=== PATIENT | male | born 1990 | race Caucasian/White ===

== ENCOUNTER 2020-12-31 10:41 | Emergency (ER) | payer SELFPAY ==
--- NOTE | 2020-12-31 11:37 | CT ---
CT cervical spine Technique: Multiple axial sections were obtained from above the C1 inferiorly to the upper T2 vertebral body. Reconstructed coronal and sagittal images were obtained. Findings: Vertebral body heights and disc spaces are maintained. No bony central or bony neural foraminal stenosis is seen. No acute fracture or subluxation is seen. Impression: 1. Nothing acute is appreciated on CT study of the cervical spine. Diagnostic code #1
--- NOTE | 2020-12-31 11:50 | EDM.PDOC ---
ED HPI GENERAL MEDICAL PROBLEM - General Chief Complaint: Back Pain or Injury Stated Complaint: SHOULDER PAIN/NUMBNESS Time Seen by Provider: 12/31/20 11:05 Source of Information: Reports: Patient History Limitations: Reports: No Limitations - History of Present Illness INITIAL COMMENTS - FREE TEXT/NARRATIVE: 30-year-old male presents the emergency department today with complaints of bilateral upper extremity numbness and pain while sleeping or laying in bed. Patient states that when he gets up in the morning and starts to move around the pain and numbness subside. He states this has been going on for about a week or so. He denies any previous injury to his back or upper extremities. 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 Denies sleeping with extremities elevated above his head at night. He states he either sleeps on his back or lays on one of the sides. No significant past medical history. Patient states he is a three-quarter pack a day smoker for the past 15 years or so. States he has not taken anything for the discomfort and has not tried any ice or heat to alleviate the discomfort. - Related Data Allergies Allergy/AdvReac Type Severity Reaction Status Date / Time No Known Allergies Allergy Verified 12/31/20 10:56 Home Meds: Home Meds . [No Known Home Meds] 12/31/20 [History] Past Medical History - Past Health History Medical/Surgical History: Denies Medical/Surgical History Social & Family History - Tobacco Use Tobacco Use Status *Q: Current Every Day Tobacco User Years of Tobacco use: 15 Packs/Tins Daily: 1 ED ROS GENERAL - Review of Systems Review Of Systems: Comprehensive ROS is negative, except as noted in HPI. ED EXAM, UPPER BACK/NECK PAIN - Physical Exam Exam: See Below Exam Limited By: No Limitations General Appearance: Alert, WD/WN, No Apparent Distress Eye Exam: Bilateral Eye: PERRL Ears Exam: Normal External Exam, Hearing Grossly Normal Nose Exam: Normal Inspection Throat/Mouth Exam: Normal Inspection, Normal Lips, Normal Voice, No Airway Comp romise Head Exam: Atraumatic, Normocephalic Neck Exam: Non-Tender, Full Range of Motion, Normal Alignment, Normal Inspection. No: Paraspinous Muscle Tender, Tenderness, Tender Lateral, Tender Midline Nexus Criteria: No: Posterior, Midline Cervical Tenderness, Evidence of Intoxication, Altered Level of Consciousness, Focal Neurological Deficit, Painful Distraction Injuries Cardiovascular/Respiratory: Regular Rate, Rhythm, Normal Peripheral Pulses, No Respiratory Distress GI/Abdominal: No Distention (Male) Exam: Deferred Rectal (Males) Exam: Deferred Back Exam: Normal Inspection, Full Range of Motion Extremities: Normal Inspection, Normal Range of Motion, Non-Tender, No Pedal Edema, Normal Capillary Refill, Other (phallen test did elicit numbness in left upper extremity in the hand and wrist, however the right upper extremity was unaffected; pulses remained 2+ in bilateral upper extremities when extremities were elevated above the patient's head). No: Arm Pain Neurologic: No Motor/Sensory Deficits, Alert, Normal Mood/Affect, Oriented x 3 Psychiatric: Normal Affect, Normal Mood Skin Exam: Normal Color, Warm/Dry Lymphatic: No Adenopathy Course - Vital Signs Text/Narrative:: States numbness and tingling and pain to bilateral upper extremities has been going on for about a week. He denies any recent injury or previous injury to his back or extremities. States he wakes with numbness and tingling and pain to bilateral upper extremities. Once he is up and moving for the day he states that the pain and numbness go away. Denies any issues with low back pain or any lower extremity numbness or weakness. I have ordered a CT scan of the thoracic spine. Last Recorded V/S: Last Vital Signs Temp 97.8 F 12/31/20 10:52 Pulse 77 12/31/20 10:52 Resp 16 12/31/20 10:52 BP 119/71 12/31/20 10:52 Pulse Ox 99 12/31/20 10:52 - Re-Assessments/Exams Free Text/Narrative Re-Assessment/Exam: 12/31/20 12:[address] cervical spine: 1. Nothing acute is appreciated on the CT study of the cervical spine. Pt will be discharged to home with recommendations that he follow up with Dr. Harley chan for further evaluation. Departure - Departure Time of Disposition: 11:48 Disposition: Home, Self-Care 01 Condition: Good Clinical Impression: Paresthesia and pain of both upper extremities - Discharge Information Instructions: Paresthesia, [id number] Referrals: PCP,None [Primary Care Provider] - Forms: ED Department Discharge Additional Instructions: You were seen in the emergency department today with complaints of numbness and pain in both of your upper arms and hands while laying in bed and sleeping. CT scan was completed which was unremarkable. However, I am going to recommend that you follow-up with our orthopedic surgeon, Dr. Traore, [facility] [place]. Recommend that you call to schedule an appointment today. The phone number is [phone]. In the meantime, he may take ibuprofen 600 mg prior to bed or Aleve 2 tabs prior to bed. Also recommend ice to the affected area 30 minutes at a time every 3 hours while awake. Should your condition worsen or change, do not hesitate returning to the emergency department. Sepsis Event Note (ED) - Evaluation Sepsis Screening Result: No Definite Risk - Focused Exam Vital Signs: Vital Signs Temp Pulse Resp BP Pulse Ox 12/31/20 10:52 97.8 F 77 16 119/71 99
== END 2020-12-31 12:00 | disposition home or self-care (01) ==
LOC: JD.ED 10:41
DX: M79.622 Pain in left upper arm (principal); M79.621 Pain in right upper arm; R20.2 Paresthesia of skin; F17.210 Nicotine dependence, cigarettes, uncomplicated
CPT/HCPCS: 72125; 72125-26; 99283; 99284-25

== ENCOUNTER 2021-04-22 05:48 | Emergency (ER) | payer SELFPAY ==
[2021-04-22] MEDS ORDERED: Clindamycin HCl 150 MG Cap PO ONE (06:16)
--- NOTE | 2021-04-22 06:17 | EDM.PDOC ---
ED HPI GENERAL MEDICAL PROBLEM - General Chief Complaint: ENT Problem Stated Complaint: TOOTH ACHE SWOLLEN JAW AND LIP Time Seen by Provider: 04/22/21 06:07 Source of Information: Reports: Patient History Limitations: Reports: No Limitations - History of Present Illness INITIAL COMMENTS - FREE TEXT/NARRATIVE: The patient presents with left lower jaw swelling. This started a few days ago. He also has some tenderness and erythema to the corner of his left mouth. He says none of his teeth hurt. He has no fever or chills. He has some swelling in to his neck also. Onset: Gradual Duration: Day(s): Location: Reports: Face Quality: Reports: Sharp Severity: Moderate Improves with: Reports: None Worsens with: Reports: None Associated Symptoms: Reports: No Other Symptoms Left Jaw Pain Score (Numeric/FACES): 10 - Related Data Allergies Allergy/AdvReac Type Severity Reaction Status Date / Time No Known Allergies Allergy Verified 04/22/21 06:00 Home Meds: Home Meds Clindamycin HCl 450 mg PO TID #90 capsule 04/22/21 [Rx] Past Medical History - Past Health History Medical/Surgical History: Denies Medical/Surgical History Social & Family History - Tobacco Use Tobacco Use Status *Q: Current Every Day Tobacco User Years of Tobacco use: 10 Packs/Tins Daily: 1 - Caffeine Use Caffeine Use: Reports: Coffee, Energy Drinks - Recreational Drug Use Recreational Drug Use: No ED ROS ENT - Review of Systems Review Of Systems: See Below Constitutional: Reports: No Symptoms HEENT: Reports: Other (Left jaw swelling) Respiratory: Reports: No Symptoms Cardiovascular: Reports: No Symptoms Endocrine: Reports: No Symptoms GI/Abdominal: Reports: No Symptoms : Reports: No Symptoms Musculoskeletal: Reports: No Symptoms ED EXAM, ENT - Physical Exam Exam: See Below Exam Limited By: No Limitations General Appearance: Alert, No Apparent Distress Ears: Normal External Exam Nose: Normal Inspection Mouth/Throat: Other (No pain upon palpation to his teeth. Erythema and edema to the corner of the left side of his mouth. Edema and pain upon palpation to the left jaw with small papule.) Head: Atraumatic, Normocephalic Neck: Lymphadenopathy (L) Respiratory/Chest: No Respiratory Distress, Lungs Clear Course - Vital Signs Last Recorded V/S: Last Vital Signs Temp 97.9 F 04/22/21 05:57 Pulse 72 04/22/21 05:57 Resp 18 04/22/21 05:57 BP 128/86 04/22/21 05:57 Pulse Ox 97 04/22/21 05:57 - Re-Assessments/Exams Free Text/Narrative Re-Assessment/Exam: 04/22/21 06:14 I have ordered a dose of clindamycin here and a prescription for more. 04/22/21 06:16 Departure - Departure Time of Disposition: 06:20 Disposition: Home, Self-Care 01 Condition: Good Clinical Impression: Cellulitis, face - Discharge Information *PRESCRIPTION DRUG MONITORING PROGRAM REVIEWED*: Not Applicable *COPY OF PRESCRIPTION DRUG MONITORING REPORT IN PATIENT VISHAL: Not Applicable Prescriptions: Clindamycin HCl 450 mg PO TID #90 capsule Referrals: PCP,None [Primary Care Provider] - Rose Marie Russo NP [Nurse Practitioner] - 1 Week Additional Instructions: Drink plenty of fluids. Take the clindamycin 3 pills 3 times per day for 10 days. Take tylneol or motrin as needed for pain or fever. Put warm compresses on your face 3 to 5 times per day for 3 days. Please return if you are worse. Sepsis Event Note (ED) - Evaluation Sepsis Screening Result: No Definite Risk - Focused Exam Vital Signs: Vital Signs Temp Pulse Resp BP Pulse Ox 04/22/21 05:57 97.9 F 72 18 128/86 97
== END 2021-04-22 06:32 | disposition home or self-care (01) ==
LOC: JD.ED 05:48
DX: L03.211 Cellulitis of face (principal); Z72.0 Tobacco use
CPT/HCPCS: 99283; A9270

== ENCOUNTER 2021-04-24 19:08 | Emergency (ER) | payer SELFPAY ==
--- NOTE | 2021-04-24 19:41 | EDM.PDOC ---
ED HPI GENERAL MEDICAL PROBLEM - General Chief Complaint: ENT Problem Stated Complaint: swollen jaw Time Seen by Provider: 04/24/21 19:18 Source of Information: Reports: Patient, Old Records (ED visit 04/22/2021) History Limitations: Reports: No Limitations - History of Present Illness INITIAL COMMENTS - FREE TEXT/NARRATIVE: Mr. Isidro is a very pleasant 30-year-old gentleman who states that he developed tender swelling under his left mandible 6 days ago, , 04/18/2021. He was seen in this ED on 04/22/2021. Review of the medical record from that date indicates that he also had some tenderness and erythema to the left corner of his mouth, and he reported that the swelling was extending to his neck, as well. He had not had a fever or chills. He denied having any dental pain. On examination, the patient had no tenderness to palpation of his teeth. There was erythema and edema to the left corner of his mouth. There is edema and tenderness to the left jaw, with a small papule noted. He was given a dose of clindamycin, and discharged home with a prescription for clindamycin 450 mg po TID #90. The patient states that he has been taking the clindamycin as prescribed, but that his symptoms have only worsened. He reports that he developed a sore throat, today. He states that he went to the walk-in clinic today, where he was found to have a temperature of 100.9 degrees. He was sent here for further evaluation. Here in the ED tonight, the patient is found to be hemodynamically stable, afebrile, saturating 99% on room air. He appears to be relatively comfortable, in no acute distress. The patient denies having prior similar symptoms. He states that he has never previously had a cold sore. Other than the left mandible and neck pain and swelling, and the possible fever earlier tonight, the patient denies having a recent chills, ear pain, nasal or sinus congestion, cough, dyspnea, chest pain, palpitations, nausea, vomiting, constipation, diarrhea, abdominal pain, urinary symptoms, recent weight gain or weight loss, recent bloody bowel movements or black bowel movements, recent joint aches, headaches, or rashes. The patient does not have a PCP. He has not received a COVID vaccination. Lower Jaw Pain Score (Numeric/FACES): 10 - Related Data Allergies Allergy/AdvReac Type Severity Reaction Status Date / Time No Known Allergies Allergy Verified 04/24/21 19:19 Home Meds: Home Meds Clindamycin HCl 450 mg PO TID #90 capsule 04/22/21 [Rx] valACYclovir [Valtrex] 1 tab PO Q12H #14 tablet 04/24/21 [Rx] Past Medical History - Past Health History Medical/Surgical History: Denies Medical/Surgical History Social & Family History - Tobacco Use Tobacco Use Status *Q: Current Every Day Tobacco User Tobacco Use Within Last Twelve Months: Smokeless Tobacco (Chews 1 can/week) Years of Tobacco use: 17 Packs/Tins Daily: 1.5 Tobacco Use Comment: Started smoking 2003 - Caffeine Use Caffeine Use: Reports: Coffee, Energy Drinks - Alcohol Use Alcohol Use History: Yes Alcohol Use Frequency: Rarely - Recreational Drug Use Recreational Drug Use: No - Living Situation & Occupation Living situation: Reports: Single, with Significant Other (Girlfriend) Occupation: Employed ([employer]) ED ROS ENT - Review of Systems Review Of Systems: Comprehensive ROS is negative, except as noted in HPI. ED EXAM, ENT - Physical Exam Exam: See Below Exam Limited By: No Limitations General Appearance: Alert, WD/WN, No Apparent Distress Eye Exam: Bilateral Eye: EOMI, Normal Inspection Ears: Normal External Exam, Normal Canal, Hearing Grossly Normal, Normal TMs Nose: Normal Inspection, Normal Mucousa, No Blood Mouth/Throat: Normal Gums, Normal Oropharynx, Other (Herpetic lesion to the left corner of the mouth. Poor dentition, but no gingival swelling or pointing. Tender swelling to the inferior margin of the left mandible.) Head: Atraumatic, Normocephalic Neck: Full Range of Motion, Tender Lateral (Mild tender swelling to the left anterolateral neck). No: Lymphadenopathy (L), Lymphadenopathy (R) Course - Vital Signs Last Recorded V/S: Last Vital Signs Temp 37.7 C 04/24/21 19:16 Pulse 100 04/24/21 19:16 Resp 16 04/24/21 19:16 BP 140/82 04/24/21 19:16 Pulse Ox 99 04/24/21 19:16 - Orders/Labs/Meds Orders: Active Orders 24 hr Category Date Time Status Sodium Chloride 0.9% [Normal Saline] 1,000 ml Med 04/24/21 19:45 Active IV ASDIRECTED Sodium Chloride 0.9% [Saline Flush] Med 04/24/21 20:00 Active 10 ml FLUSH ASDIRECTED Medication Orders Sodium Chloride (Normal Saline) 1,000 mls @ 150 mls/hr IV ASDIRECTED MARLYN Last Admin: 04/24/21 19:44 Dose: 150 mls/hr Documented by: JUAN Sodium Chloride (Sodium Chloride 0.9% 10 Ml Syringe) 10 ml FLUSH ASDIRECTED MARLYN Last Admin: 04/24/21 20:14 Dose: 10 ml Documented by: TITA Labs: Laboratory Tests 04/24/21 04/24/21 04/24/21 Range/Units 19:29 19:38 19:38 WBC 13.99 H (4.23-9.07) K/mm3 RBC 4.74 (4.63-6.08) M/mm3 Hgb 14.6 (13.7-17.5) gm/dl Hct 43.2 (40.1-51.0) % MCV 91.1 (79.0-92.2) fl MCH 30.8 (25.7-32.2) pg MCHC 33.8 (32.2-35.5) g/dl RDW Std Deviation 45.8 H (35.1-43.9) fL Plt Count 243 (163-337) K/mm3 MPV 8.7 L (9.4-12.3) fl Neutrophils % (Manual) 73 H (40-60) % Band Neutrophils % 0 (0-10) % Lymphocytes % (Manual) 14 L (20-40) % Atypical Lymphs % 0 % Monocytes % (Manual) 13 H (2-10) % Eosinophils % (Manual) 0 L (0.8-7.0) % Basophils % (Manual) 0 L (0.2-1.2) Platelet Estimate Adequate RBC Morph Comment Normal Sodium 140 (136-145) mEq/L Potassium 3.9 (3.5-5.1) mEq/L Chloride 100 (98-107) mEq/L Carbon Dioxide 25 (21-32) mEq/L Anion Gap 18.9 H (5-15) BUN 10 (7-18) mg/dL Creatinine 1.0 (0.7-1.3) mg/dL Est Cr Clr Drug Dosing 105.45 mL/min Estimated GFR (MDRD) > 60 (>60) mL/min BUN/Creatinine Ratio 10.0 L (14-18) Glucose 110 H (70-99) mg/dL Calcium 9.2 (8.5-10.1) mg/dL Total Bilirubin 0.6 (0.2-1.0) mg/dL AST 13 L (15-37) U/L ALT 23 (16-63) U/L Alkaline Phosphatase 45 L (46-116) U/L C-Reactive Protein 10.9 H* (<1.0) mg/dL Total Protein 7.9 (6.4-8.2) g/dl Albumin 3.9 (3.4-5.0) g/dl Globulin 4.0 gm/dL Albumin/Globulin Ratio 1.0 (1-2) Group A Strep (PCR) Not detected (NOT DETECT) Meds: Medications Generic Name Dose Route Start Last Admin Trade Name Freq PRN Reason Stop Dose Admin Sodium Chloride 1,000 mls @ 150 mls/hr 04/24/21 19:45 04/24/21 19:44 Normal Saline IV 150 mls/hr ASDIRECTED MARLYN Administration Sodium Chloride 10 ml 04/24/21 20:00 04/24/21 20:14 Sodium Chloride 0.9% 10 Ml Syringe FLUSH 10 ml ASDIRECTED MARLYN Administration Discontinued Medications Generic Name Dose Route Start Last Admin Trade Name Freq PRN Reason Stop Dose Admin Iopamidol 100 ml 04/24/21 19:53 04/24/21 20:14 Iopamidol 612 Mg/Ml 100 Ml Bottle IVPUSH 04/24/21 19:54 100 ml ONETIME ONE Administration - Re-Assessments/Exams Free Text/Narrative Re-Assessment/Exam: 04/24/21 19:37 As above, the patient developed painful swallowing to the inferior aspect of his left mandible about 6 days ago. He was seen in this ED 2 days ago and prescribed clindamycin, however, he states that his symptoms are only getting worse. He went to the walk-in clinic, where, he says, he was found to have a t emperature of 100.9, and was sent here for further evaluation. He is afebrile here in the ED. On examination, the patient has a herpetic lesion to the left corner of his mouth, and there is swelling to the underside of his left mandible, which is tender. He has mild swelling to his left anterolateral neck, which is also tender. I do not feel any discrete lymphadenopathy. The patient also reports that he developed a sore throat today, therefore I swabbed him for a group A strep by PCR. I have ordered a work-up that includes some blood work and a CT of the soft tissue of the neck with IV contrast. In the meantime, the patient will be given IV fluid. 04/24/21 20:17 The patient's CBC is remarkable for leukocytosis of 13.99, but with 0% bandemia, and the remainder of his CBC being unremarkable. His CMP is remarkable for slight hyperglycemia of 110, with the remainder of his CMP being unremarkable. His CRP is elevated at 10.9. His Group A streptococcus by PCR test is negative. 04/24/21 20:39 CT of the soft tissue of the neck with IV contrast is read by Dr. Chapman as: 1. Adenopathy is seen within the neck most prominent at the angle of the left side of the mandible which extends inferior to the mandible. This adenopathy is nonspecific but biopsy is suggested as the possibility of lymphoma cannot be excluded. 2. Questionable periodontal disease and dental evaluation is suggested. 04/24/21 20:58 Test results discussed with the patient. 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 Lymphoma is highly unlikely, as it would not cause him to have a herpetic oral lesion, although it is not impossible. I explained to the patient that he can be treated with and an oral antiviral agent, such as acyclovir, famciclovir, or valacyclovir, however, these medications work best if started within 72 hours of the onset of his symptoms, which he is well past at this time. The patient wanted to proceed anyway, therefore I have ordered valacyclovir 1 g, to be given now, and I will submit a prescription for the same, given BID, to complete a 7-day course. We discussed how he should proceed with this going forward. If his symptoms do not improve, then lymphoma becomes more of a possibility, and he would need to undergo a biopsy. I will therefore refer him to the clinic to establish a PCP, who would arrange for that. Presuming, however, that his symptoms do improve, confirming primary oral HSV-1, I explained that the patient will at some point redevelop symptoms. At that time, he has the option of doing nothing, taking an antiviral medication on an as-needed basis, or taking a daily suppressive dose. He prefers the latter, however, that would also need to be arranged for by a PCP, therefore, either way, he will need to establish a PCP. As there is no suggestion that the patient is suffering from a bacterial infection, I will recommend that he discontinue taking the previously prescribed clindamycin. 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 Work-up in the ER included several blood tests, a strep test, and a CT of the soft tissue of your neck with IV contrast. Your entire work-up indicates that you are suffering from primary oral HSV-1 = a first-time outbreak of oral herpes. As discussed, the first time you suffer an outbreak of oral herpes, you will tend to be sick, including a sore throat, swelling of your mouth and neck, and a fever. You have been started on the anti-viral medicine valacyclovir (Valtrex), and a prescription for valacyclovir has been sent to the [facility] located in the [employer] store. Take 1 tablet of valacyclovir every 12 hours, starting tomorrow morning, , 04/25/2021, as prescribed. Finish the entire 7-day prescription. Stay adequately hydrated, especially for the next few days. As discussed, antiviral medications such as valacyclovir works best if started within 72 hours of the onset of your symptoms. Obviously, you are well past that time, therefore you should not expect rapid improvement of your symptoms even though you are taking the valacyclovir now. Your symptoms may persist for up to 2 more weeks. It is important that you establish a primary care provider. Please follow-up with Rose Marie Russo NP, or one of the other providers in the clinic. If your symptoms improve within 2 weeks, as expected, your PCP can arrange for you to be on chronic suppressive antiviral medication, if that is your choice. Other choices are to do nothing, or take antiviral medication on an as-needed basis. If your symptoms fail to improve within 2 weeks, there is a possibility that you have lymphoma. That likelihood is low, however, in that circumstance, you would need to undergo a lymph node biopsy. Your PCP can arrange for that, as well. If any other problems, please do not hesitate to return to the ER. Sepsis Event Note (ED) - Evaluation Sepsis Screening Result: Possible Sepsis Risk - Focused Exam Vital Signs: Vital Signs Temp Pulse Resp BP Pulse Ox 04/24/21 19:16 37.7 C 100 16 140/82 99 - My Orders Last 24 Hours: My Active Orders 04/24/21 19:45 Sodium Chloride 0.9% [Normal Saline] 1,000 ml IV ASDIRECTED 04/24/21 20:00 Sodium Chloride 0.9% [Saline Flush] 10 ml FLUSH ASDIRECTED - Assessment/Plan Last 24 Hours: My Active Orders 04/24/21 19:45 Sodium Chloride 0.9% [Normal Saline] 1,000 ml IV ASDIRECTED 04/24/21 20:00 Sodium Chloride 0.9% [Saline Flush] 10 ml FLUSH ASDIRECTED
[2021-04-24] MEDS ORDERED: Sodium Chloride 0.9% 1,000 ML IV SCH (19:45)
[2021-04-24] MEDS ORDERED: Iopamidol 612 MG/ML 100 ML Bottle IVPUSH ONE (19:53)
[2021-04-24] MEDS ORDERED: Sodium Chloride 0.9% 10 ML Syringe FLUSH SCH (20:00)
--- NOTE | 2021-04-24 20:34 | CT ---
CT neck Technique: Multiple axial sections through the neck were obtained. Intravenous contrast was utilized. Comparison: No prior neck imaging is available. Findings: Enlarged lymph nodes are seen near the angle of the mandible. This is noted on the left side. Largest lymph node measures 2.1 cm. Slight enlarged lymph nodes are seen beneath the mandible. There are also scattered prominent lymph nodes within other portions of the neck on both sides. No parapharyngeal soft tissue abnormalities are seen. On images showing the mandible there is a possible periodontal disease. No other acute osseous abnormality is appreciated. Impression: 1. Adenopathy is seen within the neck most prominent at the angle of left side of the mandible which extends inferior to the mandible. This adenopathy is nonspecific but biopsy is suggested as the possibility of lymphoma cannot be excluded. 2. Questionable periodontal disease and dental evaluation is suggested. Diagnostic code #9
[2021-04-24] MEDS ORDERED: valACYclovir 1,000 MG Tab PO STA (20:57)
== END 2021-04-24 21:15 | disposition home or self-care (01) ==
LOC: JD.ED 19:08
DX: B37.0 Candidal stomatitis (principal); Z72.0 Tobacco use
CPT/HCPCS: 36415; 70491; 80053; 85007; 85027; 86140; 87651; 99284; A9270; J7030; Q9967; 99283

== ENCOUNTER 2023-08-22 22:36 | Emergency (ER) | payer SELFPAY ==
[2023-08-22] MEDS ORDERED: Ondansetron 4 MG Tab.DIS PO ONE (23:26)
== END 2023-08-23 06:10 | disposition home or self-care (01) ==
LOC: JD.ED 22:36
DX: F10.920 Alcohol use, unspecified with intoxication, uncomplicated (principal); F17.210 Nicotine dependence, cigarettes, uncomplicated
CPT/HCPCS: 99284; A9270; 99283

== ENCOUNTER 2024-02-21 19:59 | Emergency (ER) | payer OTHER ==
[2024-02-21] MEDS: Ketorolac 60 MG/2 ML SDV IM ONE (21:06)
== END 2024-02-21 21:40 | disposition left against medical advice (07) ==
LOC: JD.ED 19:59
DX: M25.561 Pain in right knee (principal); Z87.891 Personal history of nicotine dependence; W20.8XXA Other cause of strike by thrown, projected or falling object, initial encounter
CPT/HCPCS: 96372; 99282; J1885; 99283

== ENCOUNTER 2025-08-01 11:10 | Emergency (ER) | payer OTHER | END 2025-08-01 12:12 | disposition home or self-care (01) | LOC: JD.ED 11:10 | DX: R20.2 Paresthesia of skin (principal); Z79.899 Other long term (current) drug therapy | CPT/HCPCS: 99283 ==

== ENCOUNTER 2025-08-29 14:11 | Emergency (ER) | payer OTHER | END 2025-08-29 15:35 | disposition home or self-care (01) | LOC: JD.ED 14:11 | DX: S23.3XXA Sprain of ligaments of thoracic spine, initial encounter (principal); X58.XXXA Exposure to other specified factors, initial encounter; Y99.0 Civilian activity done for income or pay | CPT/HCPCS: 99283 ==